=== PATIENT | male | born 1995 | race African-American/Black ===

== ENCOUNTER 2016-10-09 15:54 | Emergency (ER) | payer MEDICAID ==
[~2016-10-09] VITALS: Ht 195.6 cm; Wt 87.5 kg
[~2016-10-09 15:54] MED LIST: ALPR0.257 PO; HYDR-3341 PO
[2016-10-09 16:13] VITALS: BP 115/76
[2016-10-09] MEDS ORDERED: DIPHENHYDRAMINE 50 MG/ML, 1ML ONE (16:46)
[2016-10-09] MEDS ORDERED: DIPHENHYDRAMINE 50 MG/ML, 1ML IM ONE (17:00)
== END 2016-10-09 16:58 | disposition home or self-care (01) ==
LOC: ED 16:56
DX: F41.1 Generalized anxiety disorder (principal); M54.6 Pain in thoracic spine; G89.29 Other chronic pain
CPT/HCPCS: 96372; 99283; J1200

== ENCOUNTER 2016-11-02 08:03 | Emergency (ER) | payer MEDICAID ==
[~2016-11-02] VITALS: Ht 193 cm; Wt 86.0 kg
[2016-11-02] MEDS ORDERED: OXYC5CAP4 PO (08:34)
[2016-11-02] MEDS ORDERED: CLON0.1T PO (08:34)
[2016-11-02] MEDS ORDERED: ASPIRIN 81 MG TABLET CHEW ONE (08:42)
[2016-11-02] MEDS ORDERED: KETOROLAC 30 MG/1 ML ONE (08:42)
[2016-11-02] MEDS ORDERED: CLON1TAB23 PO (08:59)
[2016-11-02] MEDS ORDERED: ASPIRIN 81 MG TABLET CHEW PO ONE (09:00)
[2016-11-02] MEDS ORDERED: KETOROLAC 30 MG/1 ML IM ONE (09:00)
[2016-11-02 09:03] LABS: BLOOD UREA NITROGEN 16 mg/dL (7-18)
[2016-11-02 09:08] LABS: IS PT STATUS REG ER OR PRE ER? NO
[2016-11-02 09:51] VITALS: BP 129/83
== END 2016-11-02 09:53 | disposition home or self-care (01) ==
LOC: ED 09:09
DX: R07.89 Other chest pain (principal); F41.1 Generalized anxiety disorder; G43.909 Migraine, unspecified, not intractable, without status migrainosus
CPT/HCPCS: 36415; 71010; 80048; 82040; 84484; 85025; 93005; 99285

== ENCOUNTER 2016-11-23 12:34 | Emergency (ER) | payer MEDICAID ==
[~2016-11-23] VITALS: Ht 194.3 cm; Wt 83.7 kg
[~2016-11-23 12:34] MED LIST changes: +CLON0.1T PO; +CLON1TAB23 PO; +OXYC5CAP4 PO
[2016-11-23 12:41] VITALS: BP 123/78
== END 2016-11-23 13:14 | disposition left against medical advice (07) ==
LOC: ED 13:08
DX: Z76.0 Encounter for issue of repeat prescription (principal); F12.10 Cannabis abuse, uncomplicated; F11.10 Opioid abuse, uncomplicated; M54.5 Low back pain; G89.29 Other chronic pain; I10 Essential (primary) hypertension; F32.9 Major depressive disorder, single episode, unspecified
CPT/HCPCS: 99283

== ENCOUNTER 2016-12-01 11:57 | Emergency (ER) | payer MEDICAID ==
[~2016-12-01] VITALS: Ht 193 cm; Wt 84.4 kg
[2016-12-01 12:10] VITALS: BP 133/94
[2016-12-01] MEDS ORDERED: KETOROLAC 30 MG/1 ML ONE (12:38)
[2016-12-01] MEDS ORDERED: KETOROLAC 30 MG/1 ML IM ONE (13:00)
== END 2016-12-01 13:33 | disposition home or self-care (01) ==
LOC: ED 13:27
DX: T59.811A Toxic effect of smoke, accidental (unintentional), initial encounter (principal); J70.5 Respiratory conditions due to smoke inhalation; R06.00 Dyspnea, unspecified; S96.912A Strain of unspecified muscle and tendon at ankle and foot level, left foot, initial encounter; X08.8XXA Exposure to other specified smoke, fire and flames, initial encounter; Y92.098 Other place in other non-institutional residence as the place of occurrence of the external cause; I10 Essential (primary) hypertension; G43.909 Migraine, unspecified, not intractable, without status migrainosus
CPT/HCPCS: 36415; 71020; 73660; 82375; 93005; 96372; 99285; J1885

== ENCOUNTER 2016-12-09 02:46 | Emergency (ER) | payer MEDICAID ==
[~2016-12-09] VITALS: Ht 195.6 cm; Wt 85.6 kg
[2016-12-09 02:47] VITALS: BP 142/83
== END 2016-12-09 03:41 | disposition home or self-care (01) ==
LOC: ED 03:15
DX: M79.673 Pain in unspecified foot (principal); G89.29 Other chronic pain; I10 Essential (primary) hypertension; F19.10 Other psychoactive substance abuse, uncomplicated
CPT/HCPCS: 99282

== ENCOUNTER 2017-02-11 18:38 | Emergency (ER) | payer MEDICAID ==
[~2017-02-11] VITALS: Ht 195.6 cm; Wt 81.4 kg
[2017-02-11] MEDS ORDERED: ACETAMINOPHEN 325 MG TABLET ONE (19:25)
[2017-02-11] MEDS ORDERED: METHOCARBAMOL 750 MG TABLET ONE (19:25)
[2017-02-11 19:29] LABS: HEMATOCRIT 43.1 % (39.2-51.8); HEMOGLOBIN 13.9 g/dL (13.7-18.0); WHITE BLOOD COUNT 7.7 x10^3/uL (3.4-10)
[2017-02-11] MEDS ORDERED: ACETAMINOPHEN 325 MG TABLET PO ONE (19:30)
[2017-02-11] MEDS ORDERED: METHOCARBAMOL 750 MG TABLET PO ONE (19:30)
[2017-02-11 19:39] LABS: BLOOD UREA NITROGEN 21 mg/dL (7-18)
[2017-02-11 19:59] LABS: PATH.CAST-FLAG NOT PRESENT; SPERM-FLAG NOT PRESENT; SRC-FLAG NOT PRESENT; XTAL-FLAG NOT PRESENT; YLC-FLAG NOT PRESENT
[2017-02-11] MEDS ORDERED: AZITHROMYCIN 250 MG TABLET ONE (20:55)
[2017-02-11] MEDS ORDERED: CEFTRIAXONE 250 MG ONE (20:55)
[2017-02-11] MEDS ORDERED: LIDOCAINE 1%, 20ML ONE (20:56)
[2017-02-11] MEDS ORDERED: AZITHROMYCIN 500 MG TABLET PO ONE (21:00)
[2017-02-11] MEDS ORDERED: CEFTRIAXONE 250 MG IM ONE (21:00)
[2017-02-11 21:09] VITALS: BP 136/68
== END 2017-02-11 21:11 | disposition home or self-care (01) ==
LOC: ED 20:36
DX: S39.012A Strain of muscle, fascia and tendon of lower back, initial encounter (principal); N34.1 Nonspecific urethritis; I10 Essential (primary) hypertension; G43.909 Migraine, unspecified, not intractable, without status migrainosus; F41.9 Anxiety disorder, unspecified; X58.XXXA Exposure to other specified factors, initial encounter; Y93.89 Activity, other specified; Y92.89 Other specified places as the place of occurrence of the external cause; Y99.8 Other external cause status
CPT/HCPCS: 36415; 74176; 80048; 81001; 82040; 85025; 87086; 96372; 99285; J0696

== ENCOUNTER 2017-03-24 08:10 | Emergency (ER) | payer MEDICAID ==
[~2017-03-24] VITALS: Ht 193 cm; Wt 80.4 kg
[~2017-03-24 08:10] MED LIST changes: +OXYC5CAP2 PO; -OXYC5CAP4 PO
[2017-03-24] MEDS ORDERED: SODIUM CHLORIDE 0.9% 1,000 ML IV ONE (09:14)
[2017-03-24] MEDS ORDERED: KETOROLAC 30 MG/1 ML ONE (09:19)
[2017-03-24] MEDS ORDERED: ONDANSETRON 2MG/ML, 2ML ONE (09:19)
[2017-03-24] MEDS ORDERED: MORPHINE SULFATE 4 MG/ML, 1ML ONE ×2 (09:19→10:56)
[2017-03-24] MEDS ORDERED: KETOROLAC 30 MG/1 ML IVPush ONE (09:30)
[2017-03-24] MEDS ORDERED: MORPHINE SULFATE 4 MG/ML, 1ML IVPush PRN (09:30)
[2017-03-24] MEDS ORDERED: ONDANSETRON 2MG/ML, 2ML IVPush ONE (09:30)
[2017-03-24 09:32] LABS: HEMATOCRIT 45.8 % (39.2-51.8); HEMOGLOBIN 15.2 g/dL (13.7-18.0); WHITE BLOOD COUNT 11.3 x10^3/uL (3.4-10)
[2017-03-24 09:54] LABS: BLOOD UREA NITROGEN 14 mg/dL (7-18)
[2017-03-24 09:58] LABS: ASPARTATE AMINO TRANSFERASE 12 U/L (15-37)
[2017-03-24] MEDS ORDERED: MAGNESIUM CITRATE 300ML ORAL SOL ONE (12:51)
[2017-03-24 12:58] VITALS: BP 113/60
[2017-03-24] MEDS ORDERED: MAGNESIUM CITRATE 300ML ORAL SOL PO ONE (13:00)
== END 2017-03-24 13:01 | disposition home or self-care (01) ==
LOC: ED 10:14
DX: K59.00 Constipation, unspecified (principal); I10 Essential (primary) hypertension
CPT/HCPCS: 36415; 74000; 74176; 80053; 81003; 83690; 85025; 96361; 96374; 96375; 99285; J1885; J2405; J7030

== ENCOUNTER 2017-12-02 02:06 | Emergency (ER) | payer MEDICAID ==
[~2017-12-02] VITALS: Ht 188 cm; Wt 85.3 kg
[2017-12-02 02:07] VITALS: BP 169/102
== END 2017-12-02 02:47 | disposition home or self-care (01) ==
LOC: ED 02:10
DX: S93.401A Sprain of unspecified ligament of right ankle, initial encounter (principal); I10 Essential (primary) hypertension; Z87.891 Personal history of nicotine dependence; X58.XXXA Exposure to other specified factors, initial encounter; Y93.67 Activity, basketball; Y92.89 Other specified places as the place of occurrence of the external cause; Y99.8 Other external cause status
CPT/HCPCS: 99281

== ENCOUNTER 2018-09-30 06:00 | Emergency (ER) | payer SELFPAY ==
[~2018-09-30] VITALS: Ht 190.5 cm; Wt 87.9 kg
[~2018-09-30 06:00] MED LIST changes: -CLON0.1T PO; +CLON0.1T22 PO
[2018-09-30 06:03] VITALS: BP 126/75
[2018-09-30 07:48] LABS: CULTURE INDICATED? NO; MICROSCOPIC NOT IND
[2018-09-30 07:49] LABS: BASOPHILS # (AUTO) 0.01 x10^3/uL (0-0.1); BASOPHILS % (AUTO) 0 % (0-1); EOSINOPHILS # (AUTO) 0.08 x10^3/uL (0-0.4); EOSINOPHILS % (AUTO) 1 % (1-7); LYMPHOCYTES # (AUTO) 1.97 x10^3/uL (1-3.4); LYMPHOCYTES % (AUTO) 21 % (22-44); MD NO; MEAN CORPUSCULAR HEMOGLOBIN 29.3 pg (27.5-34.5); MEAN CORPUSCULAR HGB CONC 33.3 g/dL (33.2-36.2); MEAN PLATELET VOLUME 8.1 fL (7.4-10.4); MONOCYTES # (AUTO) 0.61 x10^3/uL (0.2-0.8); MONOCYTES % (AUTO) 6 % (2-9); NEUTROPHILS # (AUTO) 6.72 x10^3/uL (1.8-6.8); NEUTROPHILS % (AUTO) 72 % (42-75); PLATELET COUNT 264 x10^3/uL (130-400); RED BLOOD COUNT 5.38 x10^6/uL (4.38-5.82); RED CELL DISTRIBUTION WIDTH 14.2 % (9.4-14.8)
[2018-09-30 07:58] LABS: ALANINE AMINOTRANSFERASE 28 U/L (12-78); ALBUMIN 3.6 g/dL (3.4-5.0); ANION GAP 3 mmol/L (5-15); CALCIUM 9.1 mg/dL (8.5-10.1); CHLORIDE 107 mmol/L (98-107); CREATININE 1.04 mg/dL (0.7-1.3)
[2018-09-30 08:00] LABS: ALKALINE PHOSPHATASE 54 U/L (45-117); BILIRUBIN,TOTAL 0.4 mg/dL (0.2-1.0); TOTAL PROTEIN 6.9 g/dL (6.4-8.2)
--- NOTE | 2018-09-30 09:27 | NUR ---
Patient/Caregiver given discharge instructions and they have confirmed that they understand the instructions. Patient ambulatory with steady gait.
== END 2018-09-30 09:28 | disposition home or self-care (01) ==
LOC: ED 08:44
DX: K92.2 Gastrointestinal hemorrhage, unspecified (principal)
CPT/HCPCS: 36415; 74021; 80053; 81003; 83690; 85025; 99284

== ENCOUNTER 2018-12-13 05:37 | Emergency (ER) | payer MEDICAID ==
[~2018-12-13] VITALS: Ht 193 cm; Wt 89.7 kg
--- NOTE | 2018-12-13 05:52 | NUR ---
assessment made. PA at bedside. c/o low back pain since last night. denies N/V
[2018-12-13] MEDS ORDERED: KETOROLAC 30 MG/1 ML ONE (05:56)
[2018-12-13] MEDS ORDERED: CYCLOBENZAPRINE 10 MG TABLET ONE (05:56)
[2018-12-13] MEDS ORDERED: CYCLOBENZAPRINE 10 MG TABLET PO ONE (06:00)
[2018-12-13] MEDS ORDERED: KETOROLAC 30 MG/1 ML IM ONE (06:00)
--- NOTE | 2018-12-13 06:02 | NUR ---
patient medicated for pain.
[2018-12-13 06:03] LABS: MICROSCOPIC AUTO
[2018-12-13 06:05] LABS: CULTURE INDICATED? YES
--- NOTE | 2018-12-13 06:15 | NUR ---
body art technician at bedside.
--- NOTE | 2018-12-13 06:24 | NUR ---
gerard Brito - delay in starting exam. Ultrasound first. 0620 hours
[2018-12-13 06:36] LABS: BASOPHILS # (AUTO) 0.03 x10^3/uL (0-0.1); BASOPHILS % (AUTO) 0 % (0-1); EOSINOPHILS # (AUTO) 0.11 x10^3/uL (0-0.4); EOSINOPHILS % (AUTO) 2 % (1-7); LYMPHOCYTES % (AUTO) 26 % (22-44); MD NO; MEAN CORPUSCULAR HEMOGLOBIN 29.6 pg (27.5-34.5); MEAN CORPUSCULAR HGB CONC 32.5 g/dL (33.2-36.2); MEAN CORPUSCULAR VOLUME 90.9 fL (81-97); MEAN PLATELET VOLUME 8.1 fL (7.4-10.4); MONOCYTES # (AUTO) 0.75 x10^3/uL (0.2-0.8); MONOCYTES % (AUTO) 11 % (2-9); NEUTROPHILS # (AUTO) 4.32 x10^3/uL (1.8-6.8); NEUTROPHILS % (AUTO) 62 % (42-75); PLATELET COUNT 223 x10^3/uL (130-400); RED BLOOD COUNT 5.22 x10^6/uL (4.38-5.82); RED CELL DISTRIBUTION WIDTH 14.5 % (9.4-14.8)
[2018-12-13 06:37] LABS: ALANINE AMINOTRANSFERASE 21 U/L (12-78); ALBUMIN 3.2 g/dL (3.4-5.0); ANION GAP 4 mmol/L (5-15); CALCIUM 8.3 mg/dL (8.5-10.1); CHLORIDE 108 mmol/L (98-107)
--- NOTE | 2018-12-13 06:38 | NUR ---
patient to X ray.
[2018-12-13 06:39] LABS: ALKALINE PHOSPHATASE 34 U/L (45-117); BILIRUBIN,TOTAL 0.2 mg/dL (0.2-1.0); TOTAL PROTEIN 5.8 g/dL (6.4-8.2)
--- NOTE | 2018-12-13 06:50 | NUR ---
report to KARL Delacruz
[2018-12-13 07:07] VITALS: BP 114/69
--- NOTE | 2018-12-13 07:09 | NUR ---
PT BACK FROM [facility]. RESTING ON Agrivi. CALL LIGHT IN REACH. NADN. ALL COCNERNS ADRESSED.
--- NOTE | 2018-12-13 07:28 | NUR ---
DR ARRIETA TO BEDSIDE.
--- NOTE | 2018-12-13 08:15 | NUR ---
Patient/Caregiver given discharge instructions and they have confirmed that they understand the instructions. Patient ambulatory with steady gait.
--- NOTE | 2018-12-15 11:37 | NUR ---
[facility] FAXED RESULTS FOR POSITIVE CHLAMYDIA.
--- NOTE | 2018-12-17 08:49 | NUR ---
2ND CONTACT WITH PT VIA PHONE NUMBER ON FILE, PT STATES HE WILL BE IN TODAY TO PUBLIC [facility]ENDER WRITTEN RX ("OH YEAH, I FORGOT ABOUT THAT."), PT VERBALIZED UNDERSTANDING OF IMPORTANCE IN DIAGNOSIS/TREATMENT.
== END 2018-12-13 08:17 | disposition home or self-care (01) ==
LOC: ED 08:11
DX: S39.012A Strain of muscle, fascia and tendon of lower back, initial encounter (principal); X58.XXXA Exposure to other specified factors, initial encounter; Y93.89 Activity, other specified; Y92.89 Other specified places as the place of occurrence of the external cause; Y99.8 Other external cause status
CPT/HCPCS: 36415; 72110; 76770; 80053; 81001; 85025; 87086; 87491; 87591; 96372; 99284; J1885

== ENCOUNTER 2019-01-09 05:49 | Emergency (ER) | payer MEDICAID ==
[~2019-01-09] VITALS: Ht 193 cm; Wt 88.9 kg
[2019-01-09 05:51] VITALS: BP 153/101
[2019-01-09] MEDS ORDERED: LIDOCAINE 4% CREAM 5GM TUBE TP ONE (06:30)
[2019-01-09 06:42] LABS: BASOPHILS # (AUTO) 0.02 x10^3/uL (0-0.1); BASOPHILS % (AUTO) 0 % (0-1); EOSINOPHILS # (AUTO) 0.04 x10^3/uL (0-0.4); EOSINOPHILS % (AUTO) 0 % (1-7); LYMPHOCYTES # (AUTO) 1.72 x10^3/uL (1-3.4); LYMPHOCYTES % (AUTO) 17 % (22-44); MD NO; MEAN CORPUSCULAR HEMOGLOBIN 29.8 pg (27.5-34.5); MEAN CORPUSCULAR HGB CONC 32.9 g/dL (33.2-36.2); MEAN CORPUSCULAR VOLUME 90.5 fL (81-97); MEAN PLATELET VOLUME 7.9 fL (7.4-10.4); MONOCYTES # (AUTO) 0.67 x10^3/uL (0.2-0.8); MONOCYTES % (AUTO) 7 % (2-9); NEUTROPHILS # (AUTO) 7.67 x10^3/uL (1.8-6.8); NEUTROPHILS % (AUTO) 76 % (42-75); PLATELET COUNT 256 x10^3/uL (130-400); RED CELL DISTRIBUTION WIDTH 14.1 % (9.4-14.8)
[2019-01-09 06:53] LABS: ANION GAP 7 mmol/L (5-15); CALCIUM 9.1 mg/dL (8.5-10.1); CHLORIDE 105 mmol/L (98-107); CREATININE 1.06 mg/dL (0.7-1.3)
== END 2019-01-09 08:01 | disposition home or self-care (01) ==
LOC: ED 06:17
DX: S90.422A Blister (nonthermal), left great toe, initial encounter (principal); L03.032 Cellulitis of left toe; I10 Essential (primary) hypertension; G43.909 Migraine, unspecified, not intractable, without status migrainosus; X58.XXXA Exposure to other specified factors, initial encounter; Y93.89 Activity, other specified; Y92.009 Unspecified place in unspecified non-institutional (private) residence as the place of occurrence of the external cause; Y99.8 Other external cause status
CPT/HCPCS: 36415; 80048; 85025; 99284

== ENCOUNTER 2019-01-16 04:55 | Emergency (ER) | payer MEDICAID ==
[~2019-01-16] VITALS: Ht 193 cm; Wt 89.2 kg
[2019-01-16 04:57] VITALS: BP 119/74
--- NOTE | 2019-01-16 05:07 | NUR ---
Pt to room from triage with steady gait and balance. MEGHAN.
--- NOTE | 2019-01-16 05:19 | NUR ---
PT STATES HE HAS PAIN AND INFECTION IN THE SPACE BETWEEN HIS FIRST AND SECOND TOE OF THE LEFT FOOT THAT HE WAS SEEN FOR ABOUT A WEEK AGO. PT STATES HE IS NOT GETTING BETTER, WITH INCREASING PAIN AND SIZE OF WOUND. + FOR PUS AT WOUND SITE. PT STATES HE HAS BEEN TAKING HIS ABX PERSCRIBED WITH NO IMPROVEMENT.
--- NOTE | 2019-01-16 05:22 | NUR ---
ER MD IN TO ASSESS PT
[2019-01-16] MEDS ORDERED: OXYcodone/APAP 5/325MG TABLET PO ONE (05:30)
[2019-01-16] MEDS ORDERED: LIDOCAINE-MPF 1%, 5ML ONE (05:30)
[2019-01-16] MEDS ORDERED: OXYcodone/APAP 5/325MG TABLET ONE (05:30)
[2019-01-16] MEDS ORDERED: LIDOCAINE-MPF 1%, 5ML INFIL ONE (05:30)
[2019-01-16] MEDS ORDERED: BUPIVACAINE 0.25% ONE (05:34)
[2019-01-16] MEDS ORDERED: BUPIVACAINE 0.25% INFIL ONE (06:00)
[2019-01-16] MEDS ORDERED: NEOSPORIN OINT. PKT 1 PACKET ONE (06:09)
== END 2019-01-16 06:49 | disposition home or self-care (01) ==
LOC: ED 06:27
DX: L02.612 Cutaneous abscess of left foot (principal); I10 Essential (primary) hypertension; F41.1 Generalized anxiety disorder; F32.9 Major depressive disorder, single episode, unspecified; N28.9 Disorder of kidney and ureter, unspecified
CPT/HCPCS: 10060; 99283

== ENCOUNTER 2019-04-27 06:09 | Emergency (ER) | payer MEDICAID ==
[~2019-04-27] VITALS: Ht 193 cm; Wt 84.7 kg
[2019-04-27 06:13] VITALS: BP 111/59
--- NOTE | 2019-04-27 06:23 | NUR ---
PT PRESENTED WITH C/O LUMP IN RIGHT ARMPIT X 4 DAYS. CALL LIGHT WITHIN REACH. AWAITING ERP FOR EVAL
--- NOTE | 2019-04-27 06:44 | NUR ---
REPORT FROM KARL SUMMERS.
--- NOTE | 2019-04-27 06:47 | NUR ---
MD AT BEDSIDE ASSESSING PT NOW.
--- NOTE | 2019-04-27 06:48 | NUR ---
REPORT GIVEN TO KRAL GALLO
[2019-04-27] MEDS ORDERED: CEPHALEXIN 500 MG CAPSULE ONE (06:51)
[2019-04-27] MEDS ORDERED: SULFAMETH./TRIMETHOPRIM DS 800MG/160MG TABLET ONE (06:52)
--- NOTE | 2019-04-27 06:53 | NUR ---
PT MEDICATED PER EMAR. AWARE OF POC. GETTING DRESSED NOW.
[2019-04-27] MEDS ORDERED: SULFAMETH./TRIMETHOPRIM DS 800MG/160MG TABLET PO ONE (07:00)
[2019-04-27] MEDS ORDERED: CEPHALEXIN 500 MG CAPSULE PO ONE (07:00)
== END 2019-04-27 07:04 ==
LOC: ED 06:29
DX: L02.411 Cutaneous abscess of right axilla (principal)
CPT/HCPCS: 99283

== ENCOUNTER 2019-07-14 02:40 | Emergency (ER) | payer MEDICAID ==
[~2019-07-14] VITALS: Ht 193 cm; Wt 88.1 kg
[2019-07-14] MEDS ORDERED: CEPHALEXIN 500 MG CAPSULE ONE (03:09)
[2019-07-14] MEDS ORDERED: SULFAMETH./TRIMETHOPRIM DS 800MG/160MG TABLET ONE (03:09)
--- NOTE | 2019-07-14 03:13 | NUR ---
MED PER MAR. PHLEB AT BS. AMBULATORY TO XRAY
[2019-07-14 03:23] LABS: BASOPHILS % (AUTO) 0 % (0-1); EOSINOPHILS # (AUTO) 0.14 x10^3/uL (0-0.4); EOSINOPHILS % (AUTO) 2 % (1-7); LYMPHOCYTES # (AUTO) 1.43 x10^3/uL (1-3.4); LYMPHOCYTES % (AUTO) 16 % (22-44); MD NO; MEAN CORPUSCULAR HGB CONC 32.8 g/dL (33.2-36.2); MEAN CORPUSCULAR VOLUME 88.2 fL (81-97); MONOCYTES % (AUTO) 9 % (2-9); NEUTROPHILS # (AUTO) 6.42 x10^3/uL (1.8-6.8); NEUTROPHILS % (AUTO) 73 % (42-75); PLATELET COUNT 245 x10^3/uL (130-400); RED BLOOD COUNT 5.02 x10^6/uL (4.38-5.82); RED CELL DISTRIBUTION WIDTH 13.7 % (9.4-14.8)
[2019-07-14] MEDS ORDERED: CEPHALEXIN 500 MG CAPSULE PO ONE (03:30)
[2019-07-14] MEDS ORDERED: SULFAMETH./TRIMETHOPRIM DS 800MG/160MG TABLET PO ONE (03:30)
[2019-07-14 03:36] LABS: ALANINE AMINOTRANSFERASE 18 U/L (12-78); ALBUMIN 3.8 g/dL (3.4-5.0); ANION GAP 5 mmol/L (5-15); CALCIUM 8.9 mg/dL (8.5-10.1); CHLORIDE 107 mmol/L (98-107); CREATININE 1.05 mg/dL (0.7-1.3)
[2019-07-14 03:41] LABS: ALKALINE PHOSPHATASE 50 U/L (45-117); BILIRUBIN,TOTAL 0.7 mg/dL (0.2-1.0); TOTAL PROTEIN 7.2 g/dL (6.4-8.2); TROPONIN I < 0.015 ng/mL (0.000-0.045)
[2019-07-14 04:23] VITALS: BP 128/65
== END 2019-07-14 04:26 | disposition home or self-care (01) ==
LOC: ED 02:54
DX: L02.31 Cutaneous abscess of buttock (principal); R00.2 Palpitations; I10 Essential (primary) hypertension
CPT/HCPCS: 36415; 71046; 80053; 84443; 84484; 85025; 93005; 99284

== ENCOUNTER 2019-11-21 21:52 | Emergency (ER) | payer SELFPAY ==
[~2019-11-21] VITALS: Ht 193 cm; Wt 92.1 kg
[2019-11-21 21:59] VITALS: BP 122/69
--- NOTE | 2019-11-21 22:38 | NUR ---
Patient presents to ER c/o SOB, cough, and ARDON x3 days. Patient states his gf was with family who has tested positive for COVID. Patient lives with his gf. He states "my gf is here in the ER right now to get tested." Patient is in NAD. Respirations even and unlabored.
== END 2019-11-21 23:17 | disposition home or self-care (01) ==
LOC: ED 23:00
DX: R06.00 Dyspnea, unspecified (principal); Z20.828 Contact with and (suspected) exposure to other viral communicable diseases; R05 Cough; M79.10 Myalgia, unspecified site; I10 Essential (primary) hypertension; G43.909 Migraine, unspecified, not intractable, without status migrainosus; J06.9 Acute upper respiratory infection, unspecified; F12.10 Cannabis abuse, uncomplicated; Z79.2 Long term (current) use of antibiotics
CPT/HCPCS: 71045; 99284; U0001

== ENCOUNTER 2020-01-01 23:31 | Emergency (ER) | payer SELFPAY ==
[~2020-01-01] VITALS: Ht 195.6 cm; Wt 91.0 kg
[2020-01-02 01:09] LABS: ALBUMIN 4.3 g/dL (3.4-5.0); ANION GAP 6 mmol/L (5-15); CALCIUM 8.8 mg/dL (8.5-10.1); CHLORIDE 107 mmol/L (98-107)
[2020-01-02 01:12] LABS: ALANINE AMINOTRANSFERASE 28 U/L (12-78); ALKALINE PHOSPHATASE 52 U/L (45-117); BILIRUBIN,TOTAL 0.7 mg/dL (0.2-1.0); CREATININE 1.37 mg/dL (0.7-1.3); TOTAL PROTEIN 7.8 g/dL (6.4-8.2)
--- NOTE | 2020-01-02 01:13 | NUR ---
PT AMBULATORY TO ROOM AND BATHROOM, STEADY GAIT.
[2020-01-02 01:19] LABS: BASOPHILS # (AUTO) 0.05 x10^3/uL (0-0.1); BASOPHILS % (AUTO) 0 % (0-1); EOSINOPHILS # (AUTO) 0.05 x10^3/uL (0-0.4); EOSINOPHILS % (AUTO) 0 % (1-7); LYMPHOCYTES # (AUTO) 1.98 x10^3/uL (1-3.4); LYMPHOCYTES % (AUTO) 16 % (22-44); MD NO; MEAN CORPUSCULAR HEMOGLOBIN 28.8 pg (27.5-34.5); MEAN CORPUSCULAR HGB CONC 32.8 g/dL (33.2-36.2); MEAN CORPUSCULAR VOLUME 87.8 fL (81-97); MEAN PLATELET VOLUME 8.3 fL (7.4-10.4); MONOCYTES % (AUTO) 9 % (2-9); NEUTROPHILS # (AUTO) 9.44 x10^3/uL (1.8-6.8); NEUTROPHILS % (AUTO) 75 % (42-75); PLATELET COUNT 229 x10^3/uL (130-400); RED BLOOD COUNT 5.02 x10^6/uL (4.38-5.82); RED CELL DISTRIBUTION WIDTH 14.2 % (9.4-14.8)
[2020-01-02] MEDS ORDERED: METHOCARBAMOL 750 MG TABLET ONE (01:39)
[2020-01-02 01:42] LABS: MICROSCOPIC INDICATED
--- NOTE | 2020-01-02 01:47 | NUR ---
THIS PT WAS BIB HIS FRIEND AFTER HE FELT IS "BACK GIVE OUT" WHILE DOING CARDIO AT THE GYM. HE IS CALM AND COOPERATIVE, ON HIS PHONE, RESPIRATIONS EVEN AND UNLABORED, NO SIGNS OF ACUTE DISTRESS.
[2020-01-02] MEDS ORDERED: METHOCARBAMOL 750 MG TABLET PO ONE (02:00)
[2020-01-02] MEDS ORDERED: IBUPROFEN 600 MG TABLET PO ONE (02:30)
[2020-01-02] MEDS ORDERED: ACETAMINOPHEN 500 MG TABLET PO ONE (02:30)
[2020-01-02] MEDS ORDERED: IBUPROFEN 600 MG TABLET ONE (02:37)
[2020-01-02] MEDS ORDERED: ACETAMINOPHEN 500 MG TABLET ONE (02:37)
[2020-01-02 02:40] VITALS: BP 128/74
== END 2020-01-02 02:47 | disposition home or self-care (01) ==
LOC: ED 01-02 01:48
DX: S39.012A Strain of muscle, fascia and tendon of lower back, initial encounter (principal); I10 Essential (primary) hypertension; G43.909 Migraine, unspecified, not intractable, without status migrainosus; X58.XXXA Exposure to other specified factors, initial encounter; Y93.89 Activity, other specified; Y92.89 Other specified places as the place of occurrence of the external cause; Y99.8 Other external cause status
CPT/HCPCS: 36415; 80053; 81001; 85025; 99284

== ENCOUNTER 2020-04-17 20:34 | Emergency (ER) | payer MEDICAID ==
[~2020-04-17] VITALS: Ht 190.5 cm; Wt 87.6 kg
[2020-04-17 20:37] VITALS: BP 137/76
== END 2020-04-17 22:37 | disposition home or self-care (01) ==
LOC: ED 21:05
DX: S90.31XA Contusion of right foot, initial encounter (principal); S93.602A Unspecified sprain of left foot, initial encounter; G43.909 Migraine, unspecified, not intractable, without status migrainosus; W50.1XXA Accidental kick by another person, initial encounter; Y93.89 Activity, other specified; Y92.009 Unspecified place in unspecified non-institutional (private) residence as the place of occurrence of the external cause; Y99.8 Other external cause status
CPT/HCPCS: 99283

== ENCOUNTER 2020-11-14 07:16 | Emergency (ER) | payer MEDICAID ==
[~2020-11-14] VITALS: Ht 193 cm; Wt 90.6 kg
[2020-11-14 07:55] VITALS: BP 127/53
[2020-11-14] MEDS ORDERED: IBUPROFEN 600 MG TABLET ONE (07:57)
[2020-11-14] MEDS ORDERED: IBUPROFEN 600 MG TABLET PO ONE (08:00)
--- NOTE | 2020-11-14 08:04 | NUR ---
Pt medicated per MAR, VSS, NADN
== END 2020-11-14 08:21 | disposition home or self-care (01) ==
LOC: ED 08:10
DX: M79.672 Pain in left foot (principal); B35.3 Tinea pedis; I10 Essential (primary) hypertension; G43.909 Migraine, unspecified, not intractable, without status migrainosus
CPT/HCPCS: 99283

== ENCOUNTER 2020-11-17 19:15 | Emergency (ER) | payer MEDICAID ==
[~2020-11-17] VITALS: Ht 193 cm; Wt 87.7 kg
--- NOTE | 2020-11-17 21:07 | NUR ---
METAPHYSICS TEACHER: PT WALKED BACK FROM LOBBY TO ROOM AT THIS TIME.
--- NOTE | 2020-11-17 21:20 | NUR ---
PT C/O BUMPS ON RIGHT AND LEFT THIGH, PT STATES PAIN HAS INCREASED FROM YESTERDAY.
[2020-11-17 22:09] LABS: MICROSCOPIC NOT IND
[2020-11-17 22:12] VITALS: BP 119/64
[2020-11-17 22:37] LABS: BASOPHILS % (AUTO) 1 % (0-1); EOSINOPHILS % (AUTO) 1 % (1-7); LYMPHOCYTES % (AUTO) 20 % (22-44); MEAN CORPUSCULAR HEMOGLOBIN 28.3 pg (27.5-34.5); MEAN CORPUSCULAR HGB CONC 33.2 g/dL (33.2-36.2); MEAN PLATELET VOLUME 7.8 fL (7.4-10.4); MONOCYTES % (AUTO) 9 % (2-9); NEUTROPHILS % (AUTO) 70 % (42-75); PLATELET COUNT 249 x10^3/uL (130-400); RED BLOOD COUNT 5.06 x10^6/uL (4.38-5.82); RED CELL DISTRIBUTION WIDTH 13.3 % (9.4-14.8)
[2020-11-17 22:38] LABS: MD NO
[2020-11-17 22:49] LABS: ALANINE AMINOTRANSFERASE 21 U/L (12-78); ALBUMIN 3.6 g/dL (3.4-5.0); ANION GAP 5 mmol/L (5-15); CALCIUM 9.2 mg/dL (8.5-10.1); CHLORIDE 109 mmol/L (98-107); CREATININE 1.07 mg/dL (0.7-1.3)
[2020-11-17 22:51] LABS: ALKALINE PHOSPHATASE 65 U/L (45-117); BILIRUBIN,TOTAL 0.3 mg/dL (0.2-1.0); TOTAL PROTEIN 7.4 g/dL (6.4-8.2)
--- NOTE | 2020-11-17 22:57 | NUR ---
REPORT TO JUAN ANTONIO BARAJAS.
== END 2020-11-18 00:17 | disposition home or self-care (01) ==
LOC: ED 11-18 00:01
DX: L04.1 Acute lymphadenitis of trunk (principal)
CPT/HCPCS: 36415; 80053; 81003; 85025; 87491; 87591; 87806; 99283; G0475